=== PATIENT | male | born 2000 | race Caucasian/White ===

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

== ENCOUNTER 2019-01-01 17:25 | Emergency (ER) | payer OTHER, MEDICAID ==
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
[2019-01-01 19:13] LABS: ABSOLUTE EOSINOPHILS # (AUTO) 0.2 10^3/uL (0.0-0.6); ABSOLUTE LYMPHOCYTES (AUTO) 1.4 10^3/uL (0.5-4.7); ABSOLUTE MONOCYTES (AUTO) 0.3 10^3/uL (0.1-1.4); ABSOLUTE NEUT (AUTO) 5.3 10^3/uL (1.7-8.2); BASOPHILS % (AUTO) 0.6 % (0-2); EOSINOPHILS % (AUTO) 3.1 % (0-6); HEMATOCRIT 45.3 % (37.9-51.0); LYMPHOCYTES % (AUTO) 19.3 % (13-45); MEAN CORPUSCULAR HGB CONC 33.1 g/dL (32.0-36.0); MEAN CORPUSCULAR VOLUME 85 fl (80-97); MONOCYTES % (AUTO) 3.9 % (3-13); PLATELET COUNT 194 10^3/uL (150-450); RED BLOOD COUNT 5.36 10^6/uL (4.35-5.55); RED CELL DISTRIBUTION WIDTH 13.6 % (11.5-14.0); SEGMENTED NEUTROPHILS % (AUTO) 73.1 % (42-78); TOTAL CELLS COUNTED % (AUTO) 100 %; WHITE BLOOD COUNT 7.3 10^3/uL (4.0-10.5)
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
[2019-01-01 19:30] LABS: ALANINE AMINOTRANSFERASE 40 U/L (10-40); ALBUMIN 5.1 g/dL (3.7-5.6); ALKALINE PHOSPHATASE 78 U/L (65-260); ANION GAP 11 (5-19); ASPARTATE AMINO TRANSFERASE 25 U/L (10-45); BILIRUBIN,DIRECT 0.2 mg/dL (0.0-0.4); BILIRUBIN,TOTAL 0.3 mg/dL (0.2-1.3); BLOOD UREA NITROGEN 9 mg/dL (7-20); CALCIUM 10.1 mg/dL (8.4-10.2); CARBON DIOXIDE 27 mmol/L (22-30); CHLORIDE 104 mmol/L (98-107); GLUCOSE 100 mg/dL (75-110); LIPASE 39.1 U/L (23-300); POTASSIUM 4.3 mmol/L (3.6-5.0); SODIUM 142.2 mmol/L (137-145); TOTAL PROTEIN 7.8 g/dL (6.3-8.2)
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
[2019-01-01 21:35] LABS: APPEARANCE,URINE CLEAR; BILIRUBIN,URINE NEGATIVE (NEGATIVE); COLOR,URINE STRAW; GLUCOSE, URINE NEGATIVE (NEGATIVE); KETONES,URINE NEGATIVE (NEGATIVE); LEUKOCYTE ESTERASE,URINE NEGATIVE (NEGATIVE); NITRITE,URINE NEGATIVE (NEGATIVE); PROTEIN,URINE NEGATIVE (NEGATIVE); UROBILINOGEN,URINE NEGATIVE mg/dL (<2.0)
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
[2019-01-01 22:00] VITALS: BP 129/62
[2019-01-01] MEDS ORDERED: ONDANSETRON 4 MG TAB.RAPDIS PO ONE (22:01)
== END 2019-01-01 22:10 | disposition home or self-care (01) ==
LOC: ER 17:25
DX: R10.84 Generalized abdominal pain (principal); R07.81 Pleurodynia; R11.2 Nausea with vomiting, unspecified; V89.2XXD Person injured in unspecified motor-vehicle accident, traffic, subsequent encounter
CPT/HCPCS: 99284; 36415; 83690; 85025; 80053; 81001; 71046; 74177; S0119

== ENCOUNTER 2019-06-07 21:47 | Emergency (ER) | payer MEDICAID, OTHER ==
--- NOTE | 2019-06-07 22:55 | RADIOLOGY REPORT (SQ) ---
EXAM DESCRIPTION: XR WRIST 3 OR MORE VIEWS BILATERAL COMPLETED DATE/TME: 06/07/2019 22:24 CLINICAL HISTORY: 19 years, Male, bone tenderness COMPARISON: None. NUMBER OF VIEWS: 3 TECHNIQUE: 3 views right wrist LIMITATIONS: None. FINDINGS: Negative for fracture or dislocation. Soft tissues are unremarkable IMPRESSION: Negative exam copyright 2011 [employer]- All Rights Reserved
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
[2019-06-08 01:30] VITALS: BP 134/75
== END 2019-06-08 01:41 | disposition home or self-care (01) ==
LOC: ER 21:47
DX: S60.211A Contusion of right wrist, initial encounter (principal); V11.9XXA Unspecified pedal cyclist injured in collision with other pedal cycle in traffic accident, initial encounter; Y93.55 Activity, bike riding; F17.200 Nicotine dependence, unspecified, uncomplicated; J45.909 Unspecified asthma, uncomplicated
CPT/HCPCS: 99283

== ENCOUNTER 2019-09-14 19:17 | Emergency (ER) | payer MEDICAID ==
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
--- NOTE | 2019-09-14 21:01 | RADIOLOGY REPORT (SQ) ---
XR RIBS UNILATERAL WITH CHEST EXAM DATE: 09/14/2019 8:24 PM CDT HISTORY: Rib pain. COMPARISON: None. FINDINGS/IMPRESSION: No displaced rib fractures are seen. The surrounding lungs are clear. No pneumothorax or pleural effusions are seen. IMPRESSION: No displaced left-sided rib fractures are seen. If there is high clinical concern or point tenderness, consider CT scan.
[2019-09-15] MEDS ORDERED: OXYCODONE-ACETAMINOPHEN 5-325 MG TABLET PO ONE (03:17)
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
[2019-09-15 04:03] VITALS: BP 135/71
== END 2019-09-15 04:03 | disposition home or self-care (01) ==
LOC: ER 19:17
DX: S22.42XA Multiple fractures of ribs, left side, initial encounter for closed fracture (principal); Y08.09XA Assault by strike by other specified type of sport equipment, initial encounter; Y92.009 Unspecified place in unspecified non-institutional (private) residence as the place of occurrence of the external cause; F31.9 Bipolar disorder, unspecified; Z79.899 Other long term (current) drug therapy
CPT/HCPCS: 99284

== ENCOUNTER 2020-08-13 12:48 | Emergency (ER) | payer MEDICAID ==
[2020-08-13 13:04] VITALS: BP 158/78
[2020-08-13] MEDS ORDERED: ACETAMINOPHEN 325 MG TABLET PO ONE (13:28)
[2020-08-13] MEDS ORDERED: PENICILLIN V POTASSIUM 500 MG TABLET PO ONE (13:28)
--- NOTE | 2020-08-13 13:37 | ER Document Report ---
HPI - HPI Pain Level: 2 Context: Patient is a 20-year-old male who presents emergency department with a chief complaint of dental pain. Patient reports that 2 weeks ago he was eating and broke his tooth. Patient reports having a broken tooth in the left lower back of his mouth. States that over the past week he has had an increase in pain to the back of his mouth and jaw. Patient reports slight swelling to the left side of his face. Denies fever. Does not have a dentist. Patient reports he used some aspirin at home without much relief. - REPRODUCTIVE Reproductive: DENIES: : Past Medical History - General Information source: Patient - Social History Smoking Status: Current Every Day Smoker Frequency of alcohol use: None Drug Abuse: None Lives with: Family Family History: Reviewed & Not Pertinent - Past Medical History Cardiac Medical History: Denies: Hx Coronary Artery Disease, Hx Heart Attack, Hx Hypertension Pulmonary Medical History: Reports: Hx Asthma - rare use of inhaler Denies: Hx Bronchitis, Hx COPD, Hx Pneumonia Neurological Medical History: Denies: Hx Cerebrovascular Accident, Hx Seizures Renal/ Medical History: Denies: Hx Peritoneal Dialysis Musculoskeletal Medical History: Denies Hx Arthritis, Reports Hx Musculoskeletal Deformity, Reports Hx Musculoskeletal Trauma Psychiatric Medical History: Reports: Hx Bipolar Disorder Past Surgical History: Reports: Hx Orthopedic Surgery - Left hip for deformity causing low dislocation and right knee for ligament. Denies: Hx Pacemaker - Immunizations Immunizations up to date: Yes Hx Diphtheria, Pertussis, Tetanus Vaccination: Yes Vertical Provider Document - CONSTITUTIONAL Agree With Documented VS: Yes Exam Limitations: No Limitations - INFECTION CONTROL TRAVEL OUTSIDE OF THE [place] IN LAST 30 DAYS: No - HEENT HEENT: Atraumatic, Normal ENT Exam, PERRLA Mouth Diagram: 1 - Broken tooth, no palpable abscess Notes: Severe gingivitis, no palpable abscess, see mouth diaphragm, severe tartar build up on all teeth. Uvula midline, no tonsil erythema or swelling. - NECK Neck: Normal Inspection Notes: Can touch chin to chest . - RESPIRATORY Respiratory: Breath Sounds Normal, No Respiratory Distress - CARDIOVASCULAR Cardiovascular: Regular Rate, Regular Rhythm - GI/ABDOMEN Gastrointestinal: Abdomen Soft, Abdomen Non-Tender, Normal Bowel Sounds - BACK Back: Normal Inspection - MUSCULOSKELETAL/EXTREMETIES Musculoskeletal/Extremeties: FROM - NEURO Level of Consciousness: Awake, Alert, Appropriate Course - Re-evaluation Re-evalutation: 08/13/20 13:40 Did educate the patient that due to his severe gingivitis, poor dentition, broken multiple teeth that he does need to follow-up with a dentist immediately. The antibiotic will start to work in the next 24 to 48 hours. Start taking the pain medication. Patient was able to swallow the Tylenol and antibiotic. I did inform the patient to return immediately if he is unable to take his medications, the pain becomes more severe, any facial swelling. Patient verbalized understanding. - Vital Signs Vital signs: Temp Pulse Resp BP Pulse Ox 99.3 F 81 20 158/78 H 99 08/13/20 13:03 08/13/20 13:03 08/13/20 13:03 08/13/20 13:03 08/13/20 13:03 Discharge - Discharge Clinical Impression: Dental infection, Gingivitis Condition: Stable Disposition: HOME, SELF-CARE Instructions: Penicillin V K ([facility]), Toothache ([facility]) Additional Instructions: *Today are seen in the emergency department for dental pain. It does appear that you have a broken tooth in the left upper mouth. It was also noted that you have severe gingivitis. You do need to follow-up with a dentist. I am prescribing you an antibiotic which you do need to take for tomorrow completed course as well as anti-inflammatories. I am prescribing you ibuprofen that you can take 3 times daily. If you develop any difficulty breathing, swallowing, swallowing the pills or liquids, high fever please return the emergency department immediately. Dental Infection or Abscess You have an infection, perhaps an abscess (pus formation) of the gum around one of your teeth, which is probably decayed. If there is an abscess, it may drain on its own or it may need to be opened or lanced. Severe swelling or drainage around a tooth usually means a deep dental abscess which usually requires evaluation and treatment by a dentist or oral surgeon. Antibiotics may be prescribed while awaiting dental treatment. If you develop high fever with chills, worsening pain, or increasing swelling in the area, see a dentist or oral surgeon immediately or return to the Emergency Department immediately. Prescriptions: Ibuprofen [Motrin 800 mg Tablet] 800 mg PO Q8H PRN #30 tab PRN Reason: Penicillin V Potassium [Penicillin Vk 500 mg Tablet] 500 mg PO BID 10 Days #20 tablet
== END 2020-08-13 13:38 | disposition home or self-care (01) ==
LOC: ER 12:48
DX: K04.7 Periapical abscess without sinus (principal); K05.10 Chronic gingivitis, plaque induced; K08.89 Other specified disorders of teeth and supporting structures; F17.200 Nicotine dependence, unspecified, uncomplicated; J45.909 Unspecified asthma, uncomplicated
CPT/HCPCS: 99283; J3490 ×2

== ENCOUNTER 2020-09-04 22:56 | Emergency (ER) | payer MEDICAID | END 2020-09-04 23:17 | disposition left against medical advice (07) | LOC: ER 22:56 | DX: Z53.21 Procedure and treatment not carried out due to patient leaving prior to being seen by health care provider (principal) ==